=== PATIENT | male | born 2000 | race Caucasian/White ===

== ENCOUNTER 2019-02-03 07:14 | Emergency (ER) | payer SELFPAY ==
[~2019-02-03] VITALS: Ht 182.9 cm; Wt 81.6 kg
--- OUTSIDE RECORDS SUMMARY | 2019-02-03 07:16 | XMS REPORT ---
Author [facility] Address Unknown Phone Unavailable Care Team Providers Care [facility] Name Role Phone Unavailable Unavailable Payers Payer Name Policy Type Policy Number Effective Date Expiration Date Problems This patient has no known problems. Allergies, Adverse Reactions, Alerts Allergy Name Allergy Type Status Severity Reaction(s) Onset Date Inactive Date Treating Clinician Comments No Known Allergies DA Active U 2016-11-04 00:00:00 Medications This patient has no known medications. Results Test Description Test Time Test Comments Text Results Atomic Results Result Comments URINALYSIS COMPLETE 2018-12-22 03:43:00 UA COLOR (test code=COLU) YELLOW YELLOW UA APPEARANCE (test code=APPU) SLIGHTLY CLOUDY CLEAR UA GLUCOSE DIPSTICK (test code=DGLUU) norm mg/dL NEGATIVE UA BILIRUBIN DIPSTICK (test code=BILU) NEGATIVE mg/dL NEGATIVE UA KETONE DIPSTICK (test code=KETU) 50 (2+) mg/dL NEGATIVE UA SPECIFIC GRAVITY (test code=SGU) 1.025 1.001-1.035 UA BLOOD DIPSTICK (test code=LYNDSAY) 25 (1+) Steve/uL NEGATIVE UA PH DIPSTICK (test code=GONZALO) 5.0 5.0-8.0 UA PROTEIN DIPSTICK (test code=PROU) 30 (1+) mg/dL Neg-15 UA UROBILINIOGEN DIPSTICK (test code=URO) norm mg/dL 0.0-0.2 UA NITRITE DIPSTICK (test code=GYPSY) NEGATIVE NEGATIVE UA LEUKOCYTE ESTERASE DIPSTICK (test code=LEUU) 500 Riri/uL (3+) uL NEGATIVE UA WBC (test code=WBCU) >100 per HPF 0-5 UA RBC (test code=RBCU) 3-5 per HPF 0-5 UA EPITHELIAL CELLS (test code=EPIU) Few (2-5/hpf) per HPF Few UA BACTERIA (test code=BACU) MANY per HPF NONE Urine Source? Clean Catch
[2019-02-03 08:04] LABS: AMPHETAMINES SCREEN,URINE NEGATIVE (NEGATIVE); BENZODIAZEPINES SCREEN,URINE NEGATIVE (NEGATIVE); PHENCYCLIDINE SCREEN,URINE NEGATIVE (NEGATIVE)
--- NOTE | 2019-02-03 08:57 | Diagnostic Imaging Report ---
Exam: Left knee radiographs - 3 views History: Pain. Comparison: None. Findings: No evidence of acute fracture or malalignment. Small suprapatellar joint effusion. Impression: Small suprapatellar joint effusion without acute osseus abnormality. Signed by: Dr. Yris Stack MD on 02/03/2019 8:53 AM
[2019-02-03] MEDS ORDERED: METHYLPREDNISOLONE ACETATE 80 MG/ML VIAL IM ONE (09:15)
[2019-02-03] MEDS ORDERED: BUPIVACAINE HCL 0.5% 10ML MPF VIAL INJ ONE (09:15)
== END 2019-02-03 11:20 | disposition home or self-care (01) ==
LOC: ER 07:14
DX: S83.412A Sprain of medial collateral ligament of left knee, initial encounter (principal); M25.462 Effusion, left knee; X50.1XXA Overexertion from prolonged static or awkward postures, initial encounter; Y92.89 Other specified places as the place of occurrence of the external cause; Y99.0 Civilian activity done for income or pay
CPT/HCPCS: 20610; 73562; 80307; 99284; J1040